=== PATIENT | male | born 1990 | race Caucasian/White ===

== ENCOUNTER 2020-08-08 16:18 | Emergency (ER) | payer OTHER, SELFPAY ==
--- NOTE | 2020-08-08 17:12 | XR_ITS ---
PROCEDURE: XR FOOT LT MIN 3V CLINICAL INDICATION: stepped on screw Pain and swelling COMPARISON: No exams were available for comparison FINDINGS: No fracture or dislocation. No lytic change. There is osteosclerosis of the proximal phalanx of the 3rd digit. This is of questionable clinical significance The joint spaces are well-preserved. No significant degenerative/arthritic changes. No erosive changes evident. Other findings:No radiopaque foreign body or soft tissue gas apparent. IMPRESSION: 1. No acute finding. 2. Nonspecific cortical thickening/sclerosis of the proximal phalanx of the 3rd digit Dictated by: Mckinley Harrell MD 08/08/2020 17:36 Mckinley Harrell MD in [place] 08/08/2020 17:36
[2020-08-08 17:15] VITALS: BP 127/85; PULSE 67; RESP 18; TEMP 36.6; O2SAT 99; BMI 20.5
--- NOTE | 2020-08-08 17:19 | HMH.EDUTC ---
[facility] [place] Impression: Puncture [place] Disposition: Home, Self-Care Condition on Discharge: Good Instructions: DI for Puncture Wound, Ciprofloxacin, Cephalexin Additional Instructions: Keep wound clean and dry Make sure to clear puncture wound well with water and antibacterial soap and water Take medication as prescribed Return if needed straight to ER if any life threatening symptoms Follow up with Family Doctor if no improvement or any worsening of symptoms Apply topical triple antibiotic to puncture wound on foot Prescriptions: Ciprofloxacin HCl [Cipro 500mg Tab] 500 mg PO BID 7 Days #14 tab [facility]: [id number] cephALEXin [Keflex 500mg Cap] 500 mg PO Q6H 7 Days #28 cap Transmission Status: Pending to [id number] Referrals: Servando Graham [Primary Care Provider] - Time of Disposition: 17:52 Medical Decision Making - Yovani Inquiry Pt receiving controlled substance: No Yovani was queried for this patient: No Vital Signs: 08/08/20 17:15 08/08/20 17:34 Temperature 97.8 F 97.8 F Temperature Source Oral Pulse Rate 67 Pulse Rate [Left] 67 Respiratory Rate 18 18 Blood Pressure 127/83 Blood Pressure [Right Arm] 127/85 Blood Pressure Mean [Right Arm] 99 Blood Pressure Source [Right Arm] Automatic Cuff Blood Pressure Position [Right Arm] Sitting 02 Sat by Pulse Oximetry 99 Oxygen Delivery Method Room Air Orders (Tests/Meds): ED MEDICATIONS Discontinued Medications Generic Name Dose Route Start Last Admin Trade Name Freq PRN Reason Stop Dose Admin Tetanus/Diphtheria Toxoids 0.5 ml 08/08/20 17:18 08/08/20 17:23 Tetanus-Diphth Toxoid, Adult 0.5ml Syr IM 08/08/20 17:19 0.5 ml .ONCE ONE Administration - Radiology Data #1 Image(s): Foot/Toes Image Reviewed: Yes I have reviewed radiologist's interpretation 1. No acute finding. 2. Nonspecific cortical thickening/sclerosis of the proximal phalanx of the 3rd digit [facility] [place] - General Stated complaint: AO 07/31/20 Stepped on screw, injury to l foot Time Seen by Provider: 08/08/20 17:20 Mode of Arrival: Ambulatory Source of Information: Patient Limitations: No Limitations Description of Symptoms (Recalled from Triage Doc. by RN): Left foot puncture last week from screw HEENT Symptoms (Recalled from RN notes): No Resp Symptoms (Recalled from RN notes): No Skin Symptoms (Recalled from RN notes): No MS Symptoms (Recalled from RN notes): No Functional Status (Recalled from RN notes): wnl - History of Present Illness Provider Complaint: Patient state that he had shoes on and last week he stepped on a screw that poked through his shoe into the bottom of his foot States that he thought it would be alright but he is having some redness and swelling and still sore States that also he is unsure when his last tetatnus shot was and wanted to get a tetanus shot today also - Related Data Previous Rx's Medication Instructions Recorded amoxicillin 500 mg tablet 500 mg PO BID 10 Days #20 tab 11/01/19 Ciprofloxacin HCl [Cipro 500mg 500 mg PO BID 7 Days #14 tab 08/08/20 Tab] cephALEXin [Keflex 500mg Cap] 500 mg PO Q6H 7 Days #28 cap 08/08/20 Allergies Allergy/AdvReac Type Severity Reaction Status Date / Time No Known Allergies Allergy Verified 08/08/20 17:17 - Worker's Comp Is this a Worker's Comp case?: No Is this an H Worker's Comp?: No Is this a [place] Worker's Comp?: No [facility] History - Hepatitis A Screen Drug use history?: No High risk sexual behaviors?: No History of sexually transmitted infection?: No Currently employed?: No Childcare worker?: No Do you have indoor plumbing?: Yes Do you have electricity?: Yes Attestation statement:: This patient has been screened for Hepatitis A risk factors. I have reviewed the patient's past medical history: Yes - Social History Smoking Status: Former smoker Alcohol Intake: current
[2020-08-08 17:34] VITALS: BP 127/83; PULSE 67; RESP 18; TEMP 36.6; O2SAT 99
== END 2020-08-08 17:54 | disposition home or self-care (01) ==
PROVIDERS: Emergency Provider Nurse Practitioner; PCP Family Medicine
DX: S91.332A Puncture wound without foreign body, left foot, initial encounter (principal); W45.0XXA Nail entering through skin, initial encounter; Y92.89 Other specified places as the place of occurrence of the external cause; Z87.891 Personal history of nicotine dependence; Z23 Encounter for immunization
CPT/HCPCS: 73630; 90471; 90714; 99201

== ENCOUNTER → 2021-10-07 10:28 | Outpatient (CLI) | payer OTHER, SELFPAY | PROVIDERS: Visit Provider Nurse Practitioner | DX: U07.1 COVID-19 (principal) | CPT/HCPCS: C9803; U0003; U0005 ==